=== PATIENT | male | born 1965 | race Caucasian/White ===

== ENCOUNTER 2018-06-08 08:16 | Outpatient (REF) | payer BC, SELFPAY ==
[2018-06-08 12:47] LABS: Glucose 97 mg/dL (70-100)
[2018-06-08 15:25] LABS: Cholesterol 201 mg/dL (50-200); HDL Cholesterol 74 mg/dL (40-60); LDL CHOLESTEROL 106 mg/dL (<100); Triglyceride 105 mg/dL (30-150)
== END 2018-06-08 08:36 ==
LOC: NCHCN 08:16
PROVIDERS: Visit Provider Nurse Practitioner Family
DX: Z00.00 Encounter for general adult medical examination without abnormal findings (principal); M10.9 Gout, unspecified; M17.9 Osteoarthritis of knee, unspecified; K57.90 Diverticulosis of intestine, part unspecified, without perforation or abscess without bleeding
CPT/HCPCS: 80061; 82947; 83721

== ENCOUNTER 2018-06-12 13:15 | Outpatient (REF) | payer BC, SELFPAY ==
[2018-06-12 13:39] LABS: Uric Acid 6.7 mg/dL (3.5-7.2)
== END 2018-06-12 13:35 ==
LOC: NCHCN 13:15
PROVIDERS: PCP Nurse Practitioner Family; Visit Provider Nurse Practitioner Family
DX: Z00.00 Encounter for general adult medical examination without abnormal findings (principal); M10.9 Gout, unspecified; M17.9 Osteoarthritis of knee, unspecified
CPT/HCPCS: 84550

== ENCOUNTER 2018-08-25 15:27 | Outpatient (CLI) | payer BC, SELFPAY ==
--- NOTE | 2018-08-25 14:58 | DI.RAD_ITS ---
SYMPTOM/DIAGNOSIS: OA, M17.9 LEFT KNEE: Five views. No priors. There is marked narrowing of the medial femoral tibial joint space and mild narrowing of the patellofemoral joint. Jayne-articular spurring is seen involving all three joint compartments, particularly the medial femoral tibial joint and the patellofemoral joint. No acute fracture or dislocation is seen. There is a mass-like density seen adjacent to the knee medially in the soft tissues. CT or MRI of the knee should be considered for further evaluation. IMPRESSION: 1. Osteoarthritis of the left knee. 2. Mass-like region in the soft tissues of the medial knee. MRI or CT scan should be considered for further evaluation.
== END 2018-08-25 15:47 ==
PROVIDERS: PCP Nurse Practitioner Family; Visit Provider Nurse Practitioner Family
DX: M17.12 Unilateral primary osteoarthritis, left knee (principal); R22.42 Localized swelling, mass and lump, left lower limb
CPT/HCPCS: 73564

== ENCOUNTER 2019-06-15 10:01 | Outpatient (REF) | payer BC, SELFPAY ==
[2019-06-15 12:57] LABS: BUN 26 mg/dL (7-18); Calcium 9.6 mg/dL (8.5-10.1); Calculated LDL 101 mg/dL; Chloride 104 mmol/L (98-107); Cholesterol 198 mg/dL (<200); Glucose 98 mg/dL (74-106); HDL Cholesterol 86 mg/dL (40-60); Potassium 4.5 mmol/L (3.5-5.1); Sodium 143 mmol/L (136-145); Triglyceride 58 mg/dL (<150)
[2019-06-15 13:13] LABS: Uric Acid 7.1 mg/dL (3.5-7.2)
== END 2019-06-15 10:21 ==
LOC: NCHCN 10:01
PROVIDERS: PCP Nurse Practitioner Family; Visit Provider Nurse Practitioner Family
DX: Z00.00 Encounter for general adult medical examination without abnormal findings (principal); M10.9 Gout, unspecified
CPT/HCPCS: 80048; 80061; 84550

== ENCOUNTER 2020-03-31 09:01 | Outpatient (CLI) | payer BC, SELFPAY ==
[2020-04-01 17:47] LABS: COVID-19 RT-PCR Result NEGATIVE (Negative)
== END 2020-03-31 09:21 ==
PROVIDERS: PCP Nurse Practitioner Family; Visit Provider Surgery
DX: Z11.59 Encounter for screening for other viral diseases (principal); Z01.818 Encounter for other preprocedural examination
CPT/HCPCS: U0003

== ENCOUNTER 2020-04-05 09:24 | Day surgery (SDC) | payer OTHER, SELFPAY ==
[2020-04-05] VITALS (8 sets, daily range): BP systolic 120–141; BP diastolic 83–98; PULSE 85–110; RESP 14–18; TEMP 36.3–36.8; O2SAT 93–99
--- NOTE | 2020-04-05 06:48 | W.PM.OP ---
Date of service: 04/05/20 Time of Service: 12:13 Operative Note Operative Note DATE OF PROCEDURE: 04/05/20 PRE-OP DIAGNOSIS: Right inguinal hernia POST-OP DIAGNOSIS: other (Direct and indirect right inguinal hernia) PROCEDURE: Right inguinal hernia repair with mesh SURGEON: Amarilys Chapman ZIPPER SETTER LOCKSTITCH: Maren Matthew ANESTHESIA: other (General/ASA 2/Aide Fournier, MANAGER MULTICULTURAL) ESTIMATED BLOOD LOSS: 25 PATHOLOGY: none sent COMPLICATIONS: None Patient was transported to: PACU Patient's condition: stable Implants: BARD Mesh- LOT- [id number] and [id number] REF- [id number] and [id number] EXP- 2024-08-10 and 2020-08-10 Indications: Right inguinal hernia: A\\ 54 year old male who was lifting something heavy a week ago and felt some pain in the right lower quadrant. He did not think much about it and just continue to work. The next day he noted a lump in the right inguinal area. It is tender when he stands for long periods of time or if he tries to lift something. The patient did fill out Worker's Comp. paperwork with his employer. He is still working but on light duty. We discussed the anatomy of the right inguinal area as well as the types of hernias. We discussed repair of the hernia with mesh. We also reviewed the possible complications. We discussed pain control with a TAP block done by anesthesia. Tylenol and ibuprofen and ice. We discussed that by doing the block the hope is that he will not need any narcotic pain medications. We also discussed covert testing and the reasoning for it. Patient is agreeable. P\\ Right inguinal hernia repair with mesh Risks, benefits and complications have been reviewed. Complications include but are not limited to bleeding, infection, injury to vas, vessels and nerves, injury to bowel and adverse reaction to medications. Questions were entertained and answered to their satisfaction and they wished to proceed. COVID-19 testing explained to the patient. Reason for test reviewed. Quarantine per state requirements reviewed with patient. Patient understands and agrees to testing Findings: Small direct hernia and moderate sized indirect hernia Procedure Description: After informed consent was obtained the patient was taken to the operating room and placed in a supine position. Monitors and SCDs were applied and a timeout was done. The patient's name, date of , procedure type, procedure site, allergies to medications, preoperative antibiotic, and DVT prophylaxis were all reviewed. Fire risk was assessed. Next anesthesia did a tap block on the right side under ultrasound guidance. Please see their separate dictation. Once anesthesia was done the abdomen was prepped and draped in a sterile surgical fashion. 1% lidocaine was injected into the dermis in the right lower quadrant. An incision was made with a 10 blade in the right lower quadrant. Dissection was done with cautery through the subcutaneous tissues and Brijesh's fascia down to the external oblique fascia. The external ring was identified and the external oblique fascia was opened sharply through the external ring. The cut fascia was grasped with hemostats the cord structures were identified and a Sagar drain was placed around them. The cremasteric muscle was dissected away from the cord structures using both cautery and blunt dissection. A hernia sac was identified and removed from the cord structures using blunt dissection. The hernia sac was suture ligated and amputated. The remnant was pushed back into the peritoneum. A 3 x 6 mesh was cut in thirds and made into a plug. The plug was placed into the indirect defect and secured with 2-0 proline. Another 3x6 mesh was then cut to size and attached to the lacunar ligament using a 2-0 Prolene double armed suture. The mesh was secured laterally and medially with a 2-0 Prolene, with a running suture. The tails of the mesh were wrapped around the cord structures effectively cinching down the internal ring. Once the mesh was secured the tissues were irrigated with some normal saline. No bleeding was identified. The external oblique fascia was re-approximated using 2-0 Vicryl running suture. The Brijesh's fascia was re-approximated using interrupted 3-0 Vicryl. The dermis was re-approximated with a running 4-0 Vicryl. The skin was cleaned and dried and skin affix was applied. The patient was woken up and taken back to recovery in stable condition. There were no immediate complications. Sponge, instrument and needle counts were correct at the end of the case x2.
--- NOTE | 2020-04-05 06:51 | PDOC.DSDIS_ITS ---
Discharge Plan Disposition Patient Disposition: HOME Condition: Good Discharge Details Reason For Visit: Right inguinal hernia Attending Provider: Amarilys Chapman Primary Care Provider: Zofia Villasenor Home Meds and New Rx's Prescriptions: Continued indomethacin 50 mg capsule 50 mg PO TID RF: 0 allopurinol 100 mg tablet 200 mg PO DAILY RF: 0 Discharge Instructions Instructions: Open Herniorrhaphy (DC) Additional Instructions: Activity at Home after surgery: 1. Make sure you walk outside at least 4 times per day 2. You should be able to climb a flight of stairs 3. No driving while in pain or taking pain medications 4. No strenuous activity or heavy lifting for 4 weeks (open surgery) Diet, Nutrition, & wound healin. Avoid alcohol until after you are recovered from your surgery 2. Make sure to eat plenty of lean protein (meat, fish, eggs, cottage cheese, beans) 3. Eat a variety of fruits and vegetables. Eat plenty of high fiber foods to avoid constipation. 4. Drink plenty of liquids to stay hydrated and avoid constipation Pain Medications: 1. Tylenol 650 mg every 6 hours as needed and Ibuprofen 600 mg every 6 hours as needed. May alternate between the two every 3 hours 2. If a narcotic has been prescribed take as directed only for breakthrough pain For Constipation: 1. Take Milk of Magnesia or MiraLax as needed for constipation Other: 1. You may shower daily. Do not scrub the incisions 2. Do not soak the incisions for 1 week 3. You may alternate ice and heat as needed for pain and swelling Wound Care: 1. Keep the incisions clean and dry Please call our office if you develop: 1. Fevers >101.5 2. Nausea or Vomiting 3. Worsening pain 4. Redness and thick discharge from the wounds If after hours please call the Hospital at and ask to speak to the on-call surgeon Referrals: Amarilys Chapman MD [ [facility] STAFF PHYSICIAN] - 04/18/20 10:00 am Activity:: No lifting >20 lb x 4 wek Remove Dressings/Wound Care:: Do Not Remove Shower/Bathe:: 24 hours Diet:: As Tolerated Discharge Orders Discharge Orders: Discharge Order (Routine); Ordered 04/05/20 Ordered By: Amarilys Chapman
[2020-04-05] MEDS: Acetaminophen 500 MG TAB 1000 MG PO (09:55)
[2020-04-05] MEDS: Lactated Ringers 1,000 ML 80 ML IV (10:06)
[2020-04-05] MEDS: ceFAZolin 2 GM/50 ML BAG IVPB (11:09)
[2020-04-05] MEDS: Bupivacaine LIPOSOME/PF 133 MG/10 ML VIAL IJ (11:15)
[2020-04-05] MEDS: Bupivacaine 0.5% Pres-Free 30 ML VIAL (11:15)
[2020-04-05] MEDS: Lidocaine 1% Multi-Dose 50 ML VIAL (11:37)
[2020-04-05] MEDS: fentaNYL 100 MCG/2 ML VIAL IVP ×2 (12:55→13:06)
== END 2020-04-05 14:32 | disposition home or self-care (01) ==
LOC: SUR 09:25
PROVIDERS: PCP Nurse Practitioner Family; Visit Provider Surgery
PROC: (CPT 49505; principal; 2020-04-05 11:00)
DX: K40.90 Unilateral inguinal hernia, without obstruction or gangrene, not specified as recurrent (principal)
CPT/HCPCS: 49505; 76942; C1781; J0690; J1100; J1885; J2001; J2250; J2405; J2704; J3010

== ENCOUNTER 2021-11-27 16:03 | Outpatient (REF) | payer BC, SELFPAY ==
[2021-11-27 18:38] LABS: ALT 21 U/L (16-63); AST 16 U/L (15-37); Alkaline Phosphatase 89 U/L (46-116); Anion Gap 11.1 mmol/L (3-11); BUN 20 mg/dL (7-18); Bilirubin, Total 0.7 mg/dL (0.2-1.0); CO2 23.9 mmol/L (21.0-32.0); CREATININE 1.1 mg/dL (0.70-1.30); Calcium 8.9 mg/dL (8.5-10.1); Calculated LDL 91 mg/dL (<100); Chloride 107 mmol/L (98-107); Cholesterol 167 mg/dL (<200); Glucose 107 mg/dL (74-106); HDL Cholesterol 65 mg/dL (40-60); Potassium 4.5 mmol/L (3.5-5.1); Sodium 142 mmol/L (136-145); Total Protein 7.2 g/dL (6.4-8.2); Triglyceride 58 mg/dL (<150)
== END 2021-11-27 16:04 | disposition home or self-care (01) ==
LOC: NCHCN 16:03
PROVIDERS: PCP Nurse Practitioner Family; Visit Provider Nurse Practitioner Family
DX: Z00.00 Encounter for general adult medical examination without abnormal findings (principal); R03.0 Elevated blood-pressure reading, without diagnosis of hypertension; Z13.220 Encounter for screening for lipoid disorders
CPT/HCPCS: 80053; 80061

== ENCOUNTER 2022-10-23 17:15 | Outpatient (REF) | payer BC, SELFPAY ==
[2022-10-23 19:49] LABS: HCT 40.9 % (40.0-50.0); HGB 13.9 g/dL (13.5-17.5); MCH 33.7 pg (27.0-33.0); MCV 99 fL (80-95); MPV 9.3 fL (8.0-11.0); Platelet Count 288 10^3/uL (130-400); RBC 4.12 10^6/uL (4.36-5.78); RDW-SD 43.9 fL; WBC 6.66 10^3/uL (4.4-10.8)
[2022-10-23 20:00] LABS: Uric Acid 5.9 mg/dL (3.5-7.2)
[2022-10-23 20:02] LABS: Hemoglobin A1C 5.8 % (<5.7)
== END 2022-10-23 17:16 | disposition home or self-care (01) ==
LOC: NCHCN 17:15
PROVIDERS: PCP Nurse Practitioner Family; Visit Provider Family Medicine
DX: M10.9 Gout, unspecified (principal); Z13.1 Encounter for screening for diabetes mellitus
CPT/HCPCS: 85027; 83036; 84550

== ENCOUNTER 2022-11-11 10:06 | Outpatient (CLI) | payer BC, SELFPAY ==
--- NOTE | 2022-11-11 09:30 | DI.RAD_ITS ---
Exam(s) XR KNEE LT 2V AP,LAT XR STANDING ALIGNMENT EXAM: XR STANDING ALIGNMENT and XR knee LT 2 V CLINICAL HISTORY: pre TKA planning. TECHNIQUE: 2D digital imaging was performed. Six images were obtained. COMPARISON: CR XR knee LT 4V+ from 08/25/2018 FINDINGS: BONES: Degenerative changes are seen in the hips bilaterally with joint space narrowing and acetabula r spurring. The right knee is well maintained. There are marked degenerative changes seen in the le ft knee characterized by joint space narrowing and periarticular spurring. The findings are most mar ked in the medial femoral tibial joint but affect all 3 joint compartments. There is chondrocalcinos is in the femoral tibial joint. There is a small joint effusion. The ankles are well maintained.The re is no significant leg length discrepancy. SOFT TISSUE: Atherosclerosis is present. IMPRESSION: Marked osteoarthritis of the left knee. DATA REPOSITORY: RADIATION DOSE DELIVERED:
== END 2022-11-11 10:07 | disposition home or self-care (01) ==
LOC: DIORS 10:06
PROVIDERS: PCP Physician Assistant; Visit Provider Physician Assistant
DX: M16.0 Bilateral primary osteoarthritis of hip (principal)
CPT/HCPCS: 73560; 77073

== ENCOUNTER 2022-12-12 03:15 | Outpatient (CLI) | payer BC, SELFPAY ==
--- NOTE | 2022-12-12 06:45 | DI.MRI_ITS ---
Exam(s) MR LOWER JOINT LT WO EXAM: MR LOWER JOINT LT WO CLINICAL HISTORY: PAIN,ARTHRITIS LT KNEE, M17.12 TECHNIQUE: Multiplanar multisequence MRI of the knee was performed. COMPARISON: CR XR KNEE LT 2V AP,LAT from 11/11/2022 FINDINGS: EFFUSION: There is moderate-large size joint effusion. Synovial thickening noted. There is a Wheeler' s cyst in the medial popliteal fossa which measures 7 cm cephalocaudal length by 1.6 cm AP x 2 cm wid e. Few internal septations. No rupture. MARROW:No evidence of fracture. Degenerative subarticular intraosseous edema seen in both sides of t he medial compartment. There are no significant osseous lesions. PATELLOFEMORAL COMPARTMENT: The quadriceps tendon is intact. The patellar ligament is intact. There is mild thinning of the retropatellar cartilage. No prominent fissure. No osteochondral defec t. No intraosseous signal to suggest recent patellar dislocation.No patellar retinacular tears. CRUCIATE LIGAMENTS: Anterior cruciate nonvisualized-chronically torn.The posterior cruciate ligament is intact. MEDIAL COMPARTMENT/MEDIAL MENISCUS: There are advanced degenerative changes in the medial compartment . There is essentially no posterior meniscal tissue. Anterior meniscus is somewhat extruded. There is full-thickness loss of cartilage over the weight-bearing surface of the medial femoral condyle an d tibial plateau with subjacent subarticular bone edema and marginal osteophytes on all sides the dale nt at this level. There is a large level cystic structure off the outer aspect of the medial compart ment which measures 5 cm craniocaudal by 2.8 cm maximum width by 3.4 cm AP, this containing internal septations. It is just posterior to the medial collateral ligament. This most probably degenerative cyst related to prior meniscal pathology-form of para-articular ganglia on. MEDIAL COLLATERAL LIGAMENT: The MCL is mildly displaced anteriorly by the above described cystic stru cture. There is no tear of the MCL proper. LATERAL COMPARTMENT/LATERAL MENISCUS: Lesser amount of degenerative changes lateral compartment. The re is signal abnormality in both horns of the lateral meniscus. Some increased signal is noted at th e level of the root of the posterior horn but no full-thickness tear. Anterior horn appears intact.T here is mild-moderate cartilage thinning over the main weight-bearing surface of the lateral femoral condyle. No osteochondral defects. No subarticular edema. Small marginal osteophytes. ILIOTIBIAL BAND: Intact LATERAL COLLATERAL LIGAMENT COMPLEX: The fibular collateral ligament is intact. The biceps femoris t endon is intact.Popliteus muscle and tendon are intact. IMPRESSION: 1. 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 PCL is intact but somewhat buckled. 2. Advanced degenerative changes in the medial compartment with full-thickness cartilage loss in the medial compartment and high-grade meniscal attenuation of the posterior horn and an element of anteri or extrusion of the anterior horn. Prominent marginal osteophytes and subarticular edema noted in th e medial compartment. 3. Prominent septated para-articular ganglion cyst off the outer aspect lateral compartment just post erior to the medial collateral ligament, this measuring 2.8 cm AP x 3.4 cm wide by 5 cm cephalocaudal . Suspect that this originated as a degenerative meniscal cyst. It is slightly displaces the MCL an teriorly. 4. Lesser degenerative changes in the lateral compartment. No high-grade lateral meniscal tears evid ent. 5. Moderate-large joint effusion. Also Wheeler cyst in the popliteal fossa which measures 7 cm length . DATA REPOSITORY:
== END 2022-12-12 03:35 ==
LOC: DI 03:15
PROVIDERS: PCP Physician Assistant; Visit Provider Student in an Organized Health Care Education/Training Program
DX: M17.12 Unilateral primary osteoarthritis, left knee (principal); M23.611 Other spontaneous disruption of anterior cruciate ligament of right knee; M25.462 Effusion, left knee
CPT/HCPCS: 73721

== ENCOUNTER 2023-05-26 10:11 | Outpatient (REF) | payer BC, SELFPAY ==
[2023-05-26 14:35] LABS: Hemoglobin A1C 5.6 % (<5.7)
[2023-05-26 14:52] LABS: ALT 28 U/L (16-63); AST 16 U/L (15-37); Alkaline Phosphatase 80 U/L (46-116); Anion Gap 7.1 mmol/L (3-11); BUN 18 mg/dL (7-18); Bilirubin, Total 1.2 mg/dL (0.2-1.0); CO2 28.9 mmol/L (21.0-32.0); CREATININE 1.1 mg/dL (0.70-1.30); Calcium 9.9 mg/dL (8.5-10.1); Calculated LDL 78 mg/dL (<100); Chloride 105 mmol/L (98-107); Cholesterol 165 mg/dL (<200); Estimated GFR 76.85 (mL/min/1.73m2); Glucose 103 mg/dL (74-106); HDL Cholesterol 76 mg/dL (40-60); Potassium 4.9 mmol/L (3.5-5.1); Sodium 141 mmol/L (136-145); Total Protein 7.2 g/dL (6.4-8.2); Triglyceride 56 mg/dL (<150)
[2023-05-26 15:04] LABS: Uric Acid 5.8 mg/dL (3.5-7.2)
[2023-05-27 00:02] LABS: PSA, Screening 1.9 ng/mL (<=4.5)
== END 2023-05-26 10:12 | disposition home or self-care (01) ==
LOC: NCHCN 10:11
PROVIDERS: PCP Physician Assistant; Visit Provider Physician Assistant
DX: R73.03 Prediabetes (principal); M10.9 Gout, unspecified; R03.0 Elevated blood-pressure reading, without diagnosis of hypertension; R79.89 Other specified abnormal findings of blood chemistry; Z12.5 Encounter for screening for malignant neoplasm of prostate
CPT/HCPCS: 80053; 80061; 84153; 83036; 84550

== ENCOUNTER 2024-06-16 08:25 | Outpatient (REF) | payer BC, SELFPAY ==
[2024-06-16 15:57] LABS: Anion Gap 9.8 mmol/L (3-11); BUN 22 mg/dL (7-18); CO2 29.2 mmol/L (21.0-32.0); CREATININE 1.3 mg/dL (0.70-1.30); Calcium 10.2 mg/dL (8.5-10.1); Calculated LDL 116 mg/dL (<100); Chloride 103 mmol/L (98-107); Cholesterol 206 mg/dL (<200); Glucose 100 mg/dL (74-106); HDL Cholesterol 81 mg/dL (40-60); Potassium 4.6 mmol/L (3.5-5.1); Sodium 142 mmol/L (136-145); Triglyceride 46 mg/dL (<150)
[2024-06-16 16:01] LABS: Hemoglobin A1C 5.7 % (<5.7)
[2024-06-16 16:39] LABS: Uric Acid 7.2 mg/dL (3.5-7.2)
== END 2024-06-16 08:26 | disposition home or self-care (01) ==
LOC: NCHCN 08:25
PROVIDERS: PCP Physician Assistant; Visit Provider Physician Assistant
DX: M10.9 Gout, unspecified (principal); I10 Essential (primary) hypertension
CPT/HCPCS: 80048; 80061; 83036; 84550

== ENCOUNTER 2024-06-24 15:28 | Outpatient (REF) | payer BC, SELFPAY ==
--- NOTE | 2024-06-23 11:25 | SKI_PTH ---
PATIENT: Asaf Menjivar LOC: [facility] U#:[id number] AGE/SX: 59/M ROOM: RE06/24/[address]: Zeb Evans : 1965 BED: DIS: 06/24/2024 SPEC #: [id number] RECD: 06/24/24 16:37 STATUS: RITESH REPhyllis #: [id number] SARA: 06/23/24 11:[address]: Zeb Evans DEPT: Surgical Specimen RECD BY: Aga Card Tissues: 1 - SKIN BIOPSY(SHAVE/PUNCH) Procedures: SKIN LEVEL 4 Comments: [id number]
== END 2024-06-24 15:29 | disposition home or self-care (01) ==
LOC: NCHCN 15:28
PROVIDERS: PCP Physician Assistant; Visit Provider Physician Assistant
DX: L57.0 Actinic keratosis (principal)
CPT/HCPCS: 88305

== ENCOUNTER 2025-06-20 09:32 | Outpatient (REF) | payer BC, SELFPAY ==
[2025-06-20 16:25] LABS: Hemoglobin A1C 5.4 % (<5.7)
[2025-06-20 16:38] LABS: Anion Gap 8.4 mmol/L (3-11); BUN 17 mg/dL (9-23); CO2 27.6 mmol/L (20.0-31.0); Calcium 9.2 mg/dL (8.3-10.6); Chloride 108 mmol/L (98-107); Cholesterol 150 mg/dL (<200); Glucose 130 mg/dL (74-106); HDL Cholesterol 67 mg/dL (>40); Potassium 5.0 mmol/L (3.5-5.1); Sodium 144 mmol/L (136-145)
[2025-06-20 17:02] LABS: Uric Acid 5.7 mg/dL (3.7-9.2)
[2025-06-21 00:02] LABS: PSA, Screening 2.3 ng/mL (<=4.5)
== END 2025-06-20 09:33 | disposition home or self-care (01) ==
LOC: NCHCN 09:32
PROVIDERS: PCP Physician Assistant; Visit Provider Physician Assistant
DX: R73.03 Prediabetes (principal); Z13.220 Encounter for screening for lipoid disorders; I10 Essential (primary) hypertension; M10.9 Gout, unspecified; Z12.5 Encounter for screening for malignant neoplasm of prostate
CPT/HCPCS: 80048; 80061; 84153; 83036; 84550

== ENCOUNTER → 2025-07-04 00:52 | Outpatient (CLI) | payer BC, SELFPAY ==
--- NOTE | 2025-07-04 | DI.RAD_ITS ---
Exam(s) XR FOOT LT COMPLETE EXAM: XR FOOT LT COMPLETE CLINICAL HISTORY: PAIN LT FOOT M79.672 OVER DORSUM LT FOOT, SUBACUTE NO TRAUMA. TECHNIQUE: 2D digital imaging was performed of the left foot. Three images were obtained. AP, oblique and lateral views were obtained. COMPARISON: No exams were available for comparison FINDINGS: BONES: No acute fracture is present. No bony destructive lesion is seen. JOINTS: No dislocation present. The joint spaces are well maintained. SOFT TISSUE: Normal. IMPRESSION: No acute abnormality. DATA REPOSITORY: RADIATION DOSE DELIVERED:
== END ==
PROVIDERS: PCP Physician Assistant; Visit Provider Physician Assistant
DX: M79.672 Pain in left foot (principal)
CPT/HCPCS: 73630